=== PATIENT | male | born 1965 | race Caucasian/White ===

== ENCOUNTER → 2017-11-14 | Day surgery (SDC) | payer OTHER ==
[~2017-11-14] MED LIST: LIDOCAINE 2% PF Vial for OR 5 ML VIAL.; PROPOFOL 20 ML IV
[2017-11-14 12:20] LABS: POC GLUCOSE 187 mg/dL (70-99)
[2017-11-14] MEDS: IV RINGERS,LACTATED 1000ML 1,000 ML IV (12:23)
== END | disposition home or self-care (01) ==
LOC: ENDOS 11:47
DX: I85.00 Esophageal varices without bleeding (principal); K29.50 Unspecified chronic gastritis without bleeding; E11.9 Type 2 diabetes mellitus without complications; I10 Essential (primary) hypertension; Z86.19 Personal history of other infectious and parasitic diseases; Z79.84 Long term (current) use of oral hypoglycemic drugs; Z79.4 Long term (current) use of insulin; Z79.899 Other long term (current) drug therapy
CPT/HCPCS: 43244; 82962; J2704

== ENCOUNTER → 2017-12-18 | Day surgery (SDC) | payer OTHER ==
[~2017-12-18] MED LIST changes: +LIDOCAINE 1% PF 2 ML VIAL. ID; +MIDAZOLAM HCL/PF 2 MG/2 ML VIAL. IV; -PROPOFOL 20 ML IV; +PROPOFOL 40 ML IV; +fentaNYL PF VIAL 100 MCG/2 ML VIAL; +fentaNYL PF VIAL 100 MCG/2 ML VIAL IV
[2017-12-18] MEDS: IV RINGERS,LACTATED 1000ML 1,000 ML IV (07:49)
[2017-12-18 07:53] LABS: POC GLUCOSE 96 mg/dL (70-99)
[2017-12-18 09:20] LABS: POC GLUCOSE 102 mg/dL (70-99)
== END | disposition home or self-care (01) ==
LOC: ENDOS 07:24
DX: I85.00 Esophageal varices without bleeding (principal); K29.20 Alcoholic gastritis without bleeding; I10 Essential (primary) hypertension; Z79.4 Long term (current) use of insulin; E11.9 Type 2 diabetes mellitus without complications; Z86.19 Personal history of other infectious and parasitic diseases; Z79.899 Other long term (current) drug therapy; K21.9 Gastro-esophageal reflux disease without esophagitis; D64.9 Anemia, unspecified; F17.200 Nicotine dependence, unspecified, uncomplicated
CPT/HCPCS: 43244; 82962; J2001; J2704; J3010